=== PATIENT | male | born 1985 | race Caucasian/White ===

== ENCOUNTER 2024-01-11 17:24 | Emergency (ER) | payer MEDICAID ==
[~2024-01-11] VITALS: Ht 185.4 cm; Wt 89.5 kg
[~2024-01-11 17:24] MED LIST: HYDR1TAB PO; IBUP-1984 PO; NO HOME MEDS
[2024-01-11] MEDS ORDERED: OXYC-145 PO (18:43)
[2024-01-11] MEDS ORDERED: IBUP-1984 PO (18:43)
[2024-01-11] MEDS: oxyCODONE/APAP 5-325mg tablet PO ONE (18:56)
[2024-01-11 19:03] VITALS: BP 137/87; PULSE 78; RESP 20; TEMP 98.1; O2SAT 97
== END 2024-01-11 19:10 | disposition home or self-care (01) ==
LOC: ER 17:24
DX: S92.352A Displaced fracture of fifth metatarsal bone, left foot, initial encounter for closed fracture (principal); Z79.899 Other long term (current) drug therapy; Z72.89 Other problems related to lifestyle; W22.8XXA Striking against or struck by other objects, initial encounter; Y93.89 Activity, other specified; Y92.89 Other specified places as the place of occurrence of the external cause; Y99.8 Other external cause status
CPT/HCPCS: 73630; 99283; 99284

== ENCOUNTER 2024-03-08 21:22 | Emergency (ER) | payer MEDICAID ==
[~2024-03-08] VITALS: Ht 185.4 cm; Wt 95.0 kg
[~2024-03-08 21:22] MED LIST changes: +OXYC-145 PO
[2024-03-08 21:26] VITALS: TEMP 97.7
[2024-03-08] MEDS ORDERED: CefTRIAXone 1000mg IM Kit (w/lidocaine diluent) IM STA (22:48)
[2024-03-08 22:49] LABS: BILIRUBIN,URINE MODERATE (Neg); CLARITY,URINE TURBID (Clear); COLOR,URINE BROWN (Yellow); GLUCOSE, URINE NEGATIVE (Neg); KETONES,URINE TRACE mg/dl (Neg); LEUKOCYTE ESTERASE ,URINE TRACE (Neg); OCCULT BLOOD,URINE LARGE (Neg); PH,URINE 6.5 (4.8-8.0); PROTEIN,URINE >=300 mg/dl (Neg)
[2024-03-08 23:01] LABS: UA COLLECTION TYPE CLN CATCH MIDSTREAM
[2024-03-08 23:03] LABS: NITRITES, URINE NEGATIVE (Neg)
[2024-03-08 23:12] LABS: SQUAMOUS EPITHELIAL CELL,UR FEW /LPF (FEW)
[2024-03-08 23:15] LABS: WBC,URINE 0-4 /HPF (0-4)
[2024-03-08 23:16] LABS: AMORPHOUS URATES 4+; BACTERIA,URINE 3+ /HPF (Neg); RBC,URINE 0-2 /HPF (0-2)
[2024-03-08 23:42] LABS: ALBUMIN 3.6 G/DL (3.4-5.0); ANION GAP 8 (8-16); BLOOD UREA NITROGEN 23 MG/DL (7-18); BUN/CREATININE RATIO 24.2 (10.0-20.0); CALCIUM 9.3 MG/DL (8.5-10.1); CHLORIDE 99 MMOL/L (99-107); CREATININE 0.95 MG/DL (0.60-1.10); GLUCOSE 64 MG/DL (70-104); POTASSIUM 4.2 MMOL/L (3.5-5.1); SODIUM 137 MMOL/L (135-145); TOTAL CARBON DIOXIDE 29.6 MMOL/L (24-32); eCRCL 119 ML/MIN; eGFR 89 ML/MIN
[2024-03-08] MEDS: CefTRIAXone 500MG IM Kit w/LIDOcaine IM ONE (23:46)
[2024-03-08] MEDS: DOXYCYCLINE 100MG CAPSULE PO ONE (23:46)
[2024-03-08] MEDS ORDERED: DOXY-457 PO (23:53)
[2024-03-08] MEDS ORDERED: SULF1TAB45 PO (23:53)
[2024-03-09 00:22] VITALS: BP 122/68; PULSE 68; RESP 17; O2SAT 97
[2024-03-12 23:19] LABS: CHLAMYDIA TRACHOMATIS, NAA Negative (Negative)
== END 2024-03-09 00:24 | disposition home or self-care (01) ==
LOC: ER 21:22
DX: R31.9 Hematuria, unspecified (principal); Z79.2 Long term (current) use of antibiotics; Z79.899 Other long term (current) drug therapy
CPT/HCPCS: 36415; 80048; 81001; 87088; 87491; 87591; 96372; 99283; J0696